=== PATIENT | female | born 2000 | race African-American/Black ===

== ENCOUNTER 2022-06-10 16:28 | Emergency (ER) | payer BC | END 2022-06-10 17:17 | disposition home or self-care (01) | LOC: CSHERS 16:28 | DX: S60.862A Insect bite (nonvenomous) of left wrist, initial encounter (principal); L03.114 Cellulitis of left upper limb; W57.XXXA Bitten or stung by nonvenomous insect and other nonvenomous arthropods, initial encounter | CPT/HCPCS: 99283 ==